=== PATIENT | female | born 1950 | race African-American/Black ===

== ENCOUNTER 2016-05-11 16:48 | Emergency (ER) | payer MEDICARE, OTHER ==
--- NOTE | ~2016-05-11 | CR127 ---
[facility] A Service of [facility] & [facility] RADIOLOGY TEXT RESULTS PATIENT: TJ BRADFORD LOCATION: SED : 48 UNIT #: [id number] AGE: [address]: Janet Ling APRN SEX: F ORDER DR: [id number] [address] [address] [id number] E MR#: [id number] Acc #: [id number] NAME: TJ BRADFORD : 1950 SEX: F STUDY DATE/TIME: 05/11/2016 16:41 UNIT: SED ROOM: STUDY DESCRIPTION: CR Foot Complete Min 3 View Rt Attending Physician: Janet Ling A.P.R.N. Ordering Physician: Janet Ling A.P.R.N. Primary Care Physician: Nba Moore M.D. MEDICAL IMAGING REPORT This report is preliminary unless electronic signature is present. EXAM Right foot, 3 views, 05/11/2016 HISTORY Right foot pain and swelling and redness for 1 week, sore on top of foot distal fourth and fifth metatarsal region for 2 days after dropping a metal pizza mendoza on top of foot. FINDINGS 3 views of the right foot demonstrate some ill-defined oblique lucency along the tuft of the fourth distal phalanx, which could reflect a nondisplaced fracture. Correlation with clinical findings is recommended. No other fracture or dislocation is seen. The bones are normally mineralized. There is soft tissue swelling about the right foot. IMPRESSION 1. Ill-defined oblique lucency involving the tuft of the fourth distal phalanx. This may represent a nondisplaced fracture. Clinical correlation is recommended. 2. Soft tissue swelling about the right foot. Dictated by... Ignacio Mcnamara M.D. THIS IS AN ELECTRONICALLY VERIFIED REPORT Ignacio Mcnamara M.D. at 05/12/2016 2:55 PM KRT/psc TD: 05/12/2016 03:32 JOB #: [id number] [facility] A Service of [facility] & [facility] RADIOLOGY TEXT RESULTS PATIENT: TJ BRADFORD LOCATION: SED : 48 UNIT #: [id number] AGE: [address]: Janet Ling APRN SEX: F ORDER DR: MEDICAL IMAGING REPORT
[~2016-05-11 16:48] MED LIST: ADVAIR 250-501 EAC1 IH; ALBUTEROL MININEB NEB; ALBUTEROL17 GM INH; AMIODARONE HCL100 MG PO; ATENOLOL50 MG PO; AZELASTINE137 MCG/0. NS; COUMADIN2.5 MG; FLONASE 0.05% N16 G1; FLONASE16 GM; HCTZ PO; HYDRALAZINE HCL25 MG; HYDROMET SYRUP480 ML PO; LASIX20 MG PO; LIPITOR20 MG; MACROBID100 M1 PO; NEXIUM PO; PREDNISONE PO; PRINIVIL20 M1 PO; SINGULAIR PO; SYNTHROID175 MCG PO; TOPROL XL PO; ZITHROMAX PO
[2016-05-11 16:58] LABS: BASOPHIL% 0.9 % (0-2.5); HEMOGLOBIN 11.9 gm/dL (12.0-16.0); LYMPHOCYTE# 1.2 X10e3 (1.0-3.5); LYMPHOCYTE% 22.9 % (17.0-45.0); MEAN CORPUSCULAR HEMOGLOBIN 30.5 PG (28-34); MEAN CORPUSCULAR HGB CONC 33.1 g/dL (30-36); MEAN PLATELET VOLUME 9.7 FL (6.5-11.5); MONOCYTE# 0.5 X10e3 (0-1.0); MONOCYTE% 9.4 % (3.0-12.0); NEUTROPHIL# 3.5 X10e3 (1.5-7.1); NEUTROPHIL% 66.8 % (40-75); PLATELET COUNT 165 X10e3 (140-420); RED BLOOD COUNT 3.92 X10e (3.90-5.30); RED CELL DISTRIBUTION WIDTH 15.1 % (11.0-15.5); WHITE BLOOD COUNT 5.3 X10e3 (4.0-10.5)
[2016-05-11 17:16] LABS: BUN/CREATININE RATIO 16.42; CALCIUM SERUM 8.4 mg/dL (8.4-10.2); CREATININE SERUM 1.4 mg/dL (0.6-1.4); GLOM FILT RATE Estimated 48.2 mL/min (>60); POTASSIUM 4.7 mmol/L (3.5-5.1)
[2016-05-11 17:20] LABS: DIFF IND NO
[2016-05-11 18:16] LABS: INR 1.5; PROTHROMBIN TIME (PATIENT) 16.8 SECONDS (9.5-12.4)
[2016-05-11 18:23] LABS: PARTIAL THROMBOPLASTIN TIME 30.2 SECONDS (25.6-38.1)
== END 2016-05-11 18:31 | disposition home or self-care (01) ==
LOC: SED 16:48
PROVIDERS: Nurse Practitioner Family
DX: S92.532A Displaced fracture of distal phalanx of left lesser toe(s), initial encounter for closed fracture (principal); Z88.8 Allergy status to other drugs, medicaments and biological substances; Z79.899 Other long term (current) drug therapy; W20.8XXA Other cause of strike by thrown, projected or falling object, initial encounter; Y92.9 Unspecified place or not applicable
CPT/HCPCS: 29405; 36415; 73630; 80048; 85025; 85610; 85730; 99283

== ENCOUNTER 2016-11-12 12:11 | Emergency (ER) | payer MEDICARE, OTHER ==
--- NOTE | ~2016-11-12 | CT4 ---
[facility] A Service of [facility] RADIOLOGY TEXT RESULTS PATIENT: TJ BRADFORD CESAR LOCATION: SED : 48 UNIT #: [id number] AGE: [address]: Orestes Arango MD SEX: F ORDER DR: [id number] [address] [address] [id number] E MR#: [id number] Acc #: [id number] NAME: TJ BRADFORD CESAR : 1950 SEX: F STUDY DATE/TIME: 11/12/2016 13:55 UNIT: SED ROOM: STUDY DESCRIPTION: CT Abd and Pelv Wo Cont Attending Physician: Orestes Arango M.D. Ordering Physician: Orestes Arango M.D. Primary Care Physician: Nba Moore M.D. MEDICAL IMAGING REPORT This report is preliminary unless electronic signature is present. EXAM CT abdomen and pelvis. INDICATIONS Bleeding from the anterior abdominal wall for 2 days. Open wound. TECHNIQUE CT abdomen and pelvis without contrast. Coronal and sagittal reconstructions were obtained. This CT exam was performed with one or more of the following radiation dose reduction techniques: automatic exposure control, adjustment of mA and/or kV according to patient size, and iterative reconstruction. COMPARISON 04/20/2015 FINDINGS There has been prior mitral valve replacement. Increased density of the liver suggests amiodarone therapy. Gallbladder is surgically absent. Pancreas, spleen, and adrenal glands are within normal limits. Patient has polycystic kidney disease. There is no hydronephrosis. Patient has multiple injection granulomata over the anterior abdominal wall. There is no suspicious loculated fluid collection. No abnormalities of the anterior abdominal wall other than generalized laxity. The bowel is not dilated. There are occasional left-sided colonic diverticula. No diverticulitis. The appendix is normal. The abdominal aorta is normal in caliber. PELVIS: No pelvic mass. Bladder is unremarkable. Uterus and ovaries are presumed surgically absent. [facility] A Service of [facility] RADIOLOGY TEXT RESULTS PATIENT: TJ BRADFORD CESAR LOCATION: SED : 48 UNIT #: [id number] AGE: [address]: Orestes Arango MD SEX: F ORDER DR: No acute osseous abnormalities. IMPRESSION 1. Multiple injection granulomata within the subcutaneous fat over the anterior abdominal wall. Mild skin thickening can be seen in the setting of a cellulitis. 2. Increased density of the liver parenchyma suggests prior amiodarone therapy. Dictated by... Delgado Bustillo M.D. THIS IS AN ELECTRONICALLY VERIFIED REPORT Delgado Bustillo M.D. at 11/13/2016 3:44 PM Hipolito TD: 11/13/2016 12:23 JOB #: [id number] MEDICAL IMAGING REPORT Page 1 of 1
[2016-11-12] MEDS ORDERED: LOVENOX (12:34)
[2016-11-12 13:50] LABS: BASOPHIL# 0.1 X10e3 (0-0.3); BASOPHIL% 1.3 % (0-2.5); HEMOGLOBIN 12.4 gm/dL (12.0-16.0); LYMPHOCYTE% 19.9 % (17.0-45.0); MEAN CELL VOLUME 92.8 FL (83-96); MEAN CORPUSCULAR HEMOGLOBIN 31.1 PG (28-34); MEAN CORPUSCULAR HGB CONC 33.5 g/dL (30-36); MEAN PLATELET VOLUME 8.7 FL (6.5-11.5); MONOCYTE# 0.5 X10e3 (0-1.0); MONOCYTE% 9.7 % (3.0-12.0); NEUTROPHIL# 3.3 X10e3 (1.5-7.1); NEUTROPHIL% 69.1 % (40-75); PLATELET COUNT 153 X10e3 (140-420); RED BLOOD COUNT 3.99 X10e (3.90-5.30); RED CELL DISTRIBUTION WIDTH 14.9 % (11.0-15.5); WHITE BLOOD COUNT 4.8 X10e3 (4.0-10.5)
[2016-11-12 13:51] LABS: DIFF IND NO
[2016-11-12 14:03] LABS: INR 1.7; PROTHROMBIN TIME (PATIENT) 19.6 SECONDS (9.5-12.4)
[2016-11-12 14:11] LABS: PARTIAL THROMBOPLASTIN TIME 43.7 SECONDS (25.6-38.1)
[2016-11-12 14:12] LABS: ALBUMIN SERUM 4.1 g/dL (3.5-5.0); BILIRUBIN, DIRECT 0.1 mg/dL (0.0-0.2); BILIRUBIN,INDIRECT 0.4 mg/dL (0.0-0.9); BILIRUBIN,TOTAL 0.5 mg/dL (0.2-2.0); BUN/CREATININE RATIO 14.7; CALCIUM SERUM 8.5 mg/dL (8.4-10.2); CREATININE SERUM 1.7 mg/dL (0.6-1.4); GLOM FILT RATE Estimated 35.6 mL/min (>60); POTASSIUM 4.1 mmol/L (3.5-5.1); PROTEIN TOTAL SERUM 7.5 g/dL (6.0-8.3)
== END 2016-11-12 16:08 | disposition home or self-care (01) ==
LOC: SED 12:11
PROVIDERS: Emergency Medicine
DX: L03.311 Cellulitis of abdominal wall (principal); J44.9 Chronic obstructive pulmonary disease, unspecified; E78.5 Hyperlipidemia, unspecified; I10 Essential (primary) hypertension; E11.9 Type 2 diabetes mellitus without complications; Z90.49 Acquired absence of other specified parts of digestive tract; Z90.710 Acquired absence of both cervix and uterus; Z88.6 Allergy status to analgesic agent; Z88.5 Allergy status to narcotic agent; Z79.899 Other long term (current) drug therapy
CPT/HCPCS: 36415; 74176; 80048; 80076; 85025; 85610; 85730; 96360; 96361; 99284

== ENCOUNTER 2016-11-14 16:48 | Emergency (ER) | payer MEDICARE, OTHER ==
[~2016-11-14 16:48] MED LIST changes: +LOVENOX
[2016-11-14 18:37] LABS: INR 2.7; PROTHROMBIN TIME (PATIENT) 30.9 SECONDS (9.5-12.4)
== END 2016-11-14 18:55 | disposition home or self-care (01) ==
LOC: SED 16:48
PROVIDERS: Emergency Medicine
DX: S30.821A Blister (nonthermal) of abdominal wall, initial encounter (principal); K21.9 Gastro-esophageal reflux disease without esophagitis; E78.5 Hyperlipidemia, unspecified; I10 Essential (primary) hypertension; Z90.710 Acquired absence of both cervix and uterus; Z90.49 Acquired absence of other specified parts of digestive tract; Z88.8 Allergy status to other drugs, medicaments and biological substances; Z79.899 Other long term (current) drug therapy
CPT/HCPCS: 36415; 85610; 99284